=== PATIENT | male | born 1975 | race Caucasian/White ===

== ENCOUNTER 2016-07-06 13:22 | Emergency (ER) | payer SELFPAY ==
[~2016-07-06] VITALS: Ht 175.3 cm; Wt 132.0 kg
[2016-07-06 13:26] VITALS: BP 149/82; PULSE 55; RESP 24; TEMP 97.5; O2SAT 94
[2016-07-06] MEDS ORDERED: BACT800T5 PO (13:54)
[2016-07-06] MEDS ORDERED: IBUP800T23 PO (13:54)
[2016-07-06] MEDS ORDERED: CEPH-460 PO (13:54)
--- NOTE | 2016-07-06 13:54 | PD ---
HPI Chief Complaint: Musculoskeletal Complaint Time Seen by Provider: 13:49 Travel History International Travel<30 days: No Contact w/Intl Traveler<30days: No Traveled to known affect area: No History of Present Illness HPI 40-year-old male presents to the emergency Department with complaint of redness and pain to his anterior gtz for the past 3-4 days. Scratch wounds noted to the left gtz to the area of concern and patient stated he was scratched by a bamboo. Reports left knee pain also. Denies injury. Denies fever, chills, nausea, vomiting. Denies history of DVT or PE. Denies leg edema that is different from his normal; reports his bilateral lower extremities are always swollen. Denies paresthesias, loss of sensation, decreased range of motion, decreased strength to bilateral lower extremities. Pain to the left gtz is aggravated with palpation and walking. Denies posterior calf pain, redness, swelling. Has not taken any medications or tried any treatments to alleviate his symptoms. Reports being up-to-date on tetanus vaccination. No known allergies. Denies significant past medical history. No other modifying factors or associated signs and symptoms. PFSH Past Medical History Medical History: Denies Significant Hx Social History Tobacco Use: No Allergies-Medications (Allergen,Severity, Reaction): Coded Allergies: No Known Allergies (Unverified , 07/06/16) Reported Meds & Prescriptions Reported Meds & Active Scripts Active Ibuprofen 800 Mg Tab 800 Mg PO Q6HR PRN Bactrim DS (Sulfamethoxazole-Trimethoprim) 800-160 Mg Tab 1 Tab PO BID 10 Days Keflex (Cephalexin) 500 Mg Cap 500 Mg PO Q6H 10 Days Review of Systems Except as stated in HPI: all other systems reviewed are Neg Physical Exam Narrative GENERAL: Well-nourished, well-developed male patient, in no acute distress; disheveled; afebrile, nontoxic-appearing SKIN: Warm and dry. Left lower anterior gtz with area of erythema and warmth to touch that is consistent with cellulitis. There are 2 scratches in the middle of the cellulitic area; without drainage. Left lower extremity is supple and non-tense with 2+ pedal pulse and sensory intact; with full range of motion and strength. Left calf Is without erythema, edema, tenderness on palpation. HEAD: Atraumatic. Normocephalic. EYES: Pupils equal and round. No scleral icterus. No injection or drainage. ENT: Mucosa pink and moist. Airway patent. NECK: Trachea midline. CARDIOVASCULAR: Regular rate. Bilateral lower extremities with 1+ pitting edema ; legs appear equally edematous. RESPIRATORY: No accessory muscle use. GASTROINTESTINAL: Obese. MUSCULOSKELETAL: Left knee is without erythema, edema and with full range of motion; no signs of septic joint. No obvious deformities. No clubbing. No cyanosis. No edema. NEUROLOGICAL: Awake and alert. Oriented 3. No obvious cranial nerve deficits. Motor grossly within normal limits. Normal speech. PSYCHIATRIC: Appropriate mood and affect; insight and judgment normal. Data Data Last Documented VS Vital Signs Date Time Temp Pulse Resp B/P Pulse Ox O2 Delivery O2 Flow Rate FiO2 07/06/16 13:26 97.5 55 24 149/82 94 Room Air Orders Ibuprofen (Motrin) (07/06/16 14:00) Crutches (07/06/16 13:55) Ketorolac Inj (Toradol Inj) (07/06/16 14:00) MDM Medical Decision Making Medical Screen Exam Complete: Yes Emergency Medical Condition: Yes Medical Record Reviewed: Yes Differential Diagnosis Cellulitis, wound infection, less likely DVT Narrative Course 40-year-old male physical exam consistent with cellulitis to the left gtz. There are 2 abrasions noted to the left gtz in the middle of the cellulitic area and the patient states that he was scratched by a bamboo. He reports it up -to-date on his tetanus vaccination. Patient is afebrile and nontoxic- appearing. I do not really findings are consistent with DVT and feel that imaging is not necessary. Area of cellulitis marked with a surgical marker. Patient requested Toradol for pain; Toradol administered in the ER. Keflex, Bactrim, ibuprofen prescribed for home. Patient is medically cleared and stable for discharge. Discussed reasons to return to the emergency department. Instructed patient to follow up with primary care provider. Patient agrees with treatment plan. The patients vital signs are stable and the patient is stable for outpatient follow-up and treatment. Patient discharged home, stable and in no acute distress. Diagnosis Primary Impression: Cellulitis of left lower extremity Referrals: Primary Care Physician Patient Instructions: Cellulitis (ED), Crutch Instructions (ED), General Instructions Departure Forms: Tests/Procedures, Work Release Enter return to work date: Jul 08, 2016 Additional Instructions: Complete full course of antibiotics Warm or cold compresses to the affected area Keep area clean and dry Ibuprofen or Tylenol as directed and as needed for pain and inflammation Follow-up with primary care provider Return to emergency department immediately with worsening of symptoms Med/Other Pt SpecificInfo: Prescription(s) given Scripts Ibuprofen 800 Mg [id number] Mg PO Q6HR PRN (PAIN) #30 TAB Ref 0 Prov:Kaur Dexter 07/06/16 Sulfamethoxazole-Trimethoprim (Bactrim DS)800-160 Mg Tab1 Tab PO BID 10 Days Ref 0 Prov:Kaur Dexter 07/06/16 Cephalexin (Keflex)500 Mg [id number] Mg PO Q6H 10 Days Ref 0 Prov:Kaur Dexter 07/06/16 Disposition: 01 DISCHARGE HOME Condition: Stable Kaur Dexter Jul 06, 2016 13:54
[2016-07-06] MEDS ORDERED: KETOROLAC TROMETHAMINE 60 MG/2 ML (IM) VIAL IM ONE (14:00)
[2016-07-06] MEDS ORDERED: IBUPROFEN 800 MG TAB PO ONE (14:00)
== END 2016-07-06 14:58 | disposition home or self-care (01) ==
LOC: NEPB 13:22
DX: L03.116 Cellulitis of left lower limb (principal); M25.562 Pain in left knee; W60.XXXA Contact with nonvenomous plant thorns and spines and sharp leaves, initial encounter
CPT/HCPCS: 96372; 99283; J1885